=== PATIENT | female | born 1965 | race Caucasian/White ===

== ENCOUNTER 2018-03-22 23:43 | Inpatient (IN) | payer OTHER, BC ==
[2018-03-23] MEDS: SOD CHLORIDE 0.9% 1,000 ML IV (00:08)
[2018-03-23] MEDS: ONDANSETRON 4 MG INJ IV (00:08)
[2018-03-23] MEDS: morphine 4 MG/ML VIAL IV (00:08)
[2018-03-23] MEDS ORDERED: ONDANSETRON 4 MG INJ IV (04:00)
[2018-03-23] MEDS ORDERED: NACL 0.9% 3 ML SYG IV (04:00)
[2018-03-23 04:46] LABS: ADD MAN DIFF? NO
[2018-03-23 04:47] LABS: HEMATOCRIT 34.1 % (37.0-47.0); HEMOGLOBIN 10.6 g/dl (12.0-16.0); RED BLOOD COUNT 4.28 10^6/ul (4.20-5.40)
[2018-03-23 04:48] LABS: BASOPHILS % 0.3 % (0.0-2.0); EOSINOPHILS % 0.6 % (0.0-7.0); LYMPHOCYTES % 23.8 % (15.0-51.0); MEAN CORPUSCULAR HEMOGLOBIN 24.8 pg (29.0-33.0); MEAN CORPUSCULAR HGB CONC 31.1 g/dl (32.0-37.0); MEAN CORPUSCULAR VOLUME 79.7 fl (82.0-101.0); MONOCYTES % 6.2 % (0.0-11.0); NEUTROPHILS % 68.7 % (39.0-77.0); PLATELET COUNT 248 10^3/UL (140-415); RED CELL DISTRIBUTION WIDTH 15.9 % (11.5-14.5)
[2018-03-23 04:49] LABS: EOSINOPHILS # 0.1 10^3/ul (0.0-0.5); LYMPHOCYTES # 2.6 10^3/ul (0.8-2.9); MONOCYTE # 0.7 10^3/ul (0.3-0.9); NEUTROPHIL # 7.6 10^3/ul (1.6-7.5)
[2018-03-23 04:52] LABS: UR CLARITY SLIGHTLY CLOUDY (CLEAR); UR COLOR YELLOW (YELLOW); UR SPECIFIC GRAVITY (Dip) 1.025 (1.003-1.030)
[2018-03-23 04:53] LABS: ADD UMIC NO; UR BILIRUBIN (Dip) NEGATIVE (NEGATIVE); UR BLOOD (Dip) NEGATIVE (NEGATIVE); UR GLUCOSE (Dip) NEGATIVE (NEGATIVE); UR KETONES (Dip) NEGATIVE (NEGATIVE); UR LEUKOCYTE ESTERASE (Dip) NEGATIVE Leu/ul (NEGATIVE); UR NITRITE (Dip) NEGATIVE (NEGATIVE); UR TOTAL PROTEIN (Dip) NEGATIVE (NEGATIVE)
[2018-03-23 04:54] LABS: UR MUCUS MODERATE /HPF (NONE SEEN); UR RBC 8 /HPF (0-5); UR SQUAMOUS EPITHELIAL CELL FEW /HPF (FEW); UR WBC 1 /HPF (0-5)
[2018-03-23 04:55] LABS: UR UROBILINOGEN (Dip) NEGATIVE (NEGATIVE)
[2018-03-23 04:58] LABS: ALANINE AMINOTRANSFERASE 63 IU/L (13-69); ALKALINE PHOSPHATASE 90 IU/L (42-121); ANION GAP 11 (8-16); ASPARTATE AMINO TRANSFERASE 140 IU/L (15-46); BLOOD UREA NITROGEN 12 mg/dl (7-20); CALCIUM 9.2 mg/dl (8.4-10.2); CARBON DIOXIDE 27 mmol/L (21-31); CHLORIDE 106 mmol/L (97-110); CREATININE 0.55 mg/dl (0.44-1.00); GLUCOSE 115 mg/dl (70-220); LIPASE 272 U/L (23-300); POTASSIUM 4.1 mmol/L (3.5-5.1); SODIUM 140 mmol/L (135-144)
[2018-03-23 04:59] LABS: ALBUMIN 3.7 g/dl (3.3-4.9); ALBUMIN/GLOBULIN RATIO 1.27; BILIRUBIN,INDIRECT 0.4 mg/dl (0-1.1); BILIRUBIN,TOTAL 0.4 mg/dl (0.2-1.3); TOTAL PROTEIN 6.6 g/dl (6.1-8.1)
[2018-03-23] MEDS: DEXTROSE 5%-0.45% NACL 1,000 ML IV ×4 (06:14→23:58)
[2018-03-23] MEDS: PANTOPRAZOLE 40 MG INJ IV (13:22)
[2018-03-23] MEDS: INDOMETHACIN 50 MG SUPP PR (19:30)
[2018-03-24] MEDS: DEXTROSE 5%-0.45% NACL 1,000 ML IV ×2 (03:54→16:07)
[2018-03-24 05:17] LABS: ADD MAN DIFF? NO
[2018-03-24 05:23] LABS: WHITE BLOOD COUNT 5.6 10^3/ul (4.8-10.8)
[2018-03-24 05:23] LABS: BASOPHILS % 0.4 % (0.0-2.0); EOSINOPHILS % 0.5 % (0.0-7.0); HEMATOCRIT 34.7 % (37.0-47.0); LYMPHOCYTES % 18.2 % (15.0-51.0); MEAN CORPUSCULAR HEMOGLOBIN 24.9 pg (29.0-33.0); MEAN CORPUSCULAR HGB CONC 31.7 g/dl (32.0-37.0); MEAN CORPUSCULAR VOLUME 78.5 fl (82.0-101.0); MEAN PLATELET VOLUME 10.5 fl (7.4-10.4); MONOCYTE # 0.6 10^3/ul (0.3-0.9); MONOCYTES % 10.7 % (0.0-11.0); NEUTROPHIL # 3.9 10^3/ul (1.6-7.5); NEUTROPHILS % 69.8 % (39.0-77.0); PLATELET COUNT 238 10^3/UL (140-415); RED BLOOD COUNT 4.42 10^6/ul (4.20-5.40); RED CELL DISTRIBUTION WIDTH 16.1 % (11.5-14.5)
[2018-03-24 06:10] LABS: ALANINE AMINOTRANSFERASE 115 IU/L (13-69); ALBUMIN 3.5 g/dl (3.3-4.9); ALBUMIN/GLOBULIN RATIO 1.16; ALKALINE PHOSPHATASE 82 IU/L (42-121); ANION GAP 11 (8-16); ASPARTATE AMINO TRANSFERASE 69 IU/L (15-46); BILIRUBIN,INDIRECT 0.9 mg/dl (0-1.1); BILIRUBIN,TOTAL 0.9 mg/dl (0.2-1.3); BLOOD UREA NITROGEN 5 mg/dl (7-20); CALCIUM 8.7 mg/dl (8.4-10.2); CARBON DIOXIDE 26 mmol/L (21-31); CHLORIDE 107 mmol/L (97-110); GLUCOSE 112 mg/dl (70-220); MAGNESIUM 1.7 mg/dl (1.7-2.5); PHOSPHORUS 3.9 mg/dl (2.5-4.9); SODIUM 140 mmol/L (135-144); TOTAL PROTEIN 6.5 g/dl (6.1-8.1)
[2018-03-24] MEDS: PANTOPRAZOLE 40 MG INJ IV (06:53)
[2018-03-24] MEDS ORDERED: BUPIVACAINE 0.25%/EPI (SDV) 30 ML INJ (10:01)
[2018-03-24] MEDS: INDOMETHACIN 50 MG SUPP PR (12:00)
[2018-03-24] MEDS: morphine 2 MG INJ IV (17:02)
[2018-03-24] MEDS ORDERED: IOHEXOL 300MG/ML 30 ML BTL (18:35)
[2018-03-24] MEDS ORDERED: NEOSTIGMINE 3 MG/3 ML SYRINGE (19:10)
[2018-03-24] MEDS ORDERED: PROPOFOL 20 ML (19:10)
[2018-03-24] MEDS ORDERED: CEFAZOLIN 1 GM INJ (19:10)
[2018-03-24] MEDS ORDERED: DEXAMETHASONE 4 MG/ML 1 ML INJ (19:10)
[2018-03-24] MEDS ORDERED: GLYCOPYRROLATE 0.4 MG INJ (19:10)
[2018-03-24] MEDS ORDERED: MIDAZOLAM 1 MG/ML 2 ML INJ (19:10)
[2018-03-24] MEDS ORDERED: ROCURONIUM 50 MG INJ (19:10)
[2018-03-24] MEDS ORDERED: ONDANSETRON 4 MG INJ (19:10)
[2018-03-24] MEDS ORDERED: FENTAnyl 50 MCG/ML VIAL (19:10)
[2018-03-24] MEDS ORDERED: HYDROmorphONE 1 MG/5 ML IV SYRINGE IV ×3 (19:30)
[2018-03-24] MEDS ORDERED: OXYCODONE/ACETAMINOPHEN (5/325) TAB PO ×2 (19:30)
[2018-03-24] MEDS ORDERED: hydrALAzine 20 MG INJ IV (19:30)
[2018-03-24] MEDS ORDERED: DIPHENHYDRAMINE 50 MG INJ IV (19:30)
[2018-03-24] MEDS ORDERED: MEPERIDINE 25 MG INJ IV (19:30)
[2018-03-24] MEDS ORDERED: MIDAZOLAM 1 MG/ML 2 ML INJ IV (19:30)
[2018-03-24] MEDS ORDERED: ALBUTEROL 0.083% (NEB) 2.5 MG/3 ML AMP HHN (19:30)
[2018-03-24] MEDS ORDERED: TRIMETHOBENZAMIDE 100 MG/ML VIAL IM (19:30)
[2018-03-24] MEDS ORDERED: FENTAnyl 50 MCG/ML VIAL IV ×3 (19:30)
[2018-03-24] MEDS ORDERED: IPRATROPIUM (NEB) 0.5 MG/2.5 ML AMP HHN (19:30)
[2018-03-24] MEDS ORDERED: EPHEDrine SULFATE 50 MG/5 ML SYG IV (19:30)
[2018-03-24] MEDS ORDERED: LABETALOL HCL 20MG INJ IV (19:30)
[2018-03-24] MEDS ORDERED: ONDANSETRON 4 MG INJ IV (19:30)
[2018-03-24] MEDS ORDERED: SUGAMMADEX SODIUM 200 MG/2 ML VIAL IV ×2 (19:52→19:59)
[2018-03-25] MEDS: PANTOPRAZOLE 40 MG INJ IV (05:09)
[2018-03-25] MEDS: DEXTROSE 5%-0.45% NACL 1,000 ML IV ×2 (05:09→15:58)
[2018-03-25 05:45] LABS: ADD MAN DIFF? NO
[2018-03-25 06:00] LABS: WHITE BLOOD COUNT 6.6 10^3/ul (4.8-10.8)
[2018-03-25 06:00] LABS: ABNORMAL IP MESSAGE 1; BASOPHILS % 0.2 % (0.0-2.0); HEMATOCRIT 36.3 % (37.0-47.0); HEMOGLOBIN 11.6 g/dl (12.0-16.0); LYMPHOCYTES # 0.4 10^3/ul (0.8-2.9); LYMPHOCYTES % 5.5 % (15.0-51.0); MEAN CORPUSCULAR HEMOGLOBIN 24.6 pg (29.0-33.0); MEAN CORPUSCULAR VOLUME 77.1 fl (82.0-101.0); MEAN PLATELET VOLUME 11.3 fl (7.4-10.4); MONOCYTE # 0.2 10^3/ul (0.3-0.9); MONOCYTES % 2.3 % (0.0-11.0); NEUTROPHILS % 91.7 % (39.0-77.0); PLATELET COUNT 259 10^3/UL (140-415); RED BLOOD COUNT 4.71 10^6/ul (4.20-5.40); RED CELL DISTRIBUTION WIDTH 15.4 % (11.5-14.5)
[2018-03-25 06:12] LABS: POSITIVE DIFF @See below
[2018-03-25 06:29] LABS: ALANINE AMINOTRANSFERASE 566 IU/L (13-69); ALBUMIN 3.9 g/dl (3.3-4.9); ALBUMIN/GLOBULIN RATIO 1.18; ALKALINE PHOSPHATASE 162 IU/L (42-121); ANION GAP 14 (8-16); ASPARTATE AMINO TRANSFERASE 659 IU/L (15-46); BILIRUBIN,INDIRECT 0.5 mg/dl (0-1.1); BILIRUBIN,TOTAL 0.5 mg/dl (0.2-1.3); BLOOD UREA NITROGEN 6 mg/dl (7-20); CALCIUM 9.1 mg/dl (8.4-10.2); CARBON DIOXIDE 26 mmol/L (21-31); CHLORIDE 104 mmol/L (97-110); CREATININE 0.57 mg/dl (0.44-1.00); GLUCOSE 181 mg/dl (70-220); POTASSIUM 3.6 mmol/L (3.5-5.1); SODIUM 140 mmol/L (135-144); TOTAL PROTEIN 7.2 g/dl (6.1-8.1)
[2018-03-25 06:42] LABS: IRON 26 ug/dl (35-150)
[2018-03-25 06:51] LABS: % IRON SATURATION 6 % SAT (22-52); TOTAL IRON BINDING CAPACITY 452 ug/dl (241-421)
[2018-03-25 13:14] LABS: ALANINE AMINOTRANSFERASE 602 IU/L (13-69); ALBUMIN 3.9 g/dl (3.3-4.9); ALKALINE PHOSPHATASE 152 IU/L (42-121); ASPARTATE AMINO TRANSFERASE 593 IU/L (15-46); BILIRUBIN,INDIRECT 0.5 mg/dl (0-1.1); BILIRUBIN,TOTAL 0.5 mg/dl (0.2-1.3); TOTAL PROTEIN 6.6 g/dl (6.1-8.1)
[2018-03-25 15:29] LABS: ALANINE AMINOTRANSFERASE 407 IU/L (13-69); ALBUMIN 3.7 g/dl (3.3-4.9); ALKALINE PHOSPHATASE 124 IU/L (42-121); ASPARTATE AMINO TRANSFERASE 267 IU/L (15-46); BILIRUBIN,INDIRECT 0.4 mg/dl (0-1.1); BILIRUBIN,TOTAL 0.4 mg/dl (0.2-1.3); TOTAL PROTEIN 6.6 g/dl (6.1-8.1)
[2018-03-25] MEDS: SOD FERRIC GLUC COMPLX 125 MG in SOD CHLORIDE 0.9% 100 ML IVPB (16:29)
== END 2018-03-25 18:40 | disposition home or self-care (01) | DRG 445 ==
LOC: E/R 23:43 → MS1 03-23 03:26
PROC: 0FC98ZZ Extirpation of Matter from Common Bile Duct, Via Natural or Artificial Opening Endoscopic (ICD-10-PCS; principal; 2018-03-24 19:00)
PROC: BF10YZZ Fluoroscopy of Bile Ducts using Other Contrast (ICD-10-PCS; 2018-03-24 19:00)
DX: K80.50 Calculus of bile duct without cholangitis or cholecystitis without obstruction (principal); K82.1 Hydrops of gallbladder; K29.70 Gastritis, unspecified, without bleeding; N92.0 Excessive and frequent menstruation with regular cycle; D50.9 Iron deficiency anemia, unspecified
CPT/HCPCS: 71045; 74176; 74181; 74330; 80053; 80076; 81003; 83540; 83690; 83735; 84100; 84703; 85025